=== PATIENT | female | born 1990 | race Caucasian/White ===

== ENCOUNTER 2017-11-14 00:21 | Outpatient (CLI) | payer MEDICAID ==
[2017-11-14 01:35] LABS: ADD MAN DIFF? NO
[2017-11-14 01:39] LABS: WHITE BLOOD COUNT 12.7 10^3/ul (4.8-10.8)
[2017-11-14 01:39] LABS: ABNORMAL IP MESSAGE 1; BASOPHILS % 0.2 % (0.0-2.0); EOSINOPHILS # 0.1 10^3/ul (0.0-0.5); EOSINOPHILS % 0.9 % (0.0-7.0); HEMATOCRIT 31.1 % (37.0-47.0); HEMOGLOBIN 10.4 g/dl (12.0-16.0); LYMPHOCYTES # 2.4 10^3/ul (0.8-2.9); LYMPHOCYTES % 18.9 % (15.0-51.0); MEAN CORPUSCULAR HEMOGLOBIN 26.9 pg (29.0-33.0); MEAN CORPUSCULAR HGB CONC 33.4 g/dl (32.0-37.0); MEAN CORPUSCULAR VOLUME 80.4 fl (82.0-101.0); MEAN PLATELET VOLUME 11.1 fl (7.4-10.4); MONOCYTES % 8.1 % (0.0-11.0); NEUTROPHIL # 9.1 10^3/ul (1.6-7.5); NEUTROPHILS % 71.4 % (39.0-77.0); PLATELET COUNT 86 10^3/UL (140-415); RED BLOOD COUNT 3.87 10^6/ul (4.20-5.40); RED CELL DISTRIBUTION WIDTH 13.9 % (11.5-14.5)
[2017-11-14 01:42] LABS: POSITIVE DIFF @See below
[2017-11-14 02:25] LABS: ADD UMIC YES; UR ASCORBIC ACID NEGATIVE (NEGATIVE); UR BACTERIA MODERATE /HPF (NONE SEEN); UR BILIRUBIN (Dip) NEGATIVE (NEGATIVE); UR BLOOD (Dip) 1+ mg/dL (NEGATIVE); UR CLARITY SLIGHTLY CLOUDY (CLEAR); UR COLOR YELLOW (YELLOW); UR GLUCOSE (Dip) NEGATIVE (NEGATIVE); UR KETONES (Dip) NEGATIVE (NEGATIVE); UR LEUKOCYTE ESTERASE (Dip) 3+ Leu/ul (NEGATIVE); UR NITRITE (Dip) POSITIVE (NEGATIVE); UR RBC 5 /HPF (0-5); UR SPECIFIC GRAVITY (Dip) 1.006 (1.003-1.030); UR TOTAL PROTEIN (Dip) 1+ mg/dl (NEGATIVE); UR UROBILINOGEN (Dip) NEGATIVE (NEGATIVE); UR WBC 76 /HPF (0-5)
[2017-11-14] MEDS: CEFTRIAXONE 1 GM INJ IM (04:35)
[2017-11-14] MEDS ORDERED: MAGNESIUM SULFATE 4 GM/100 ML 100 ML (05:31)
== END 2017-11-14 04:30 | disposition home or self-care (01) ==
LOC: OBT 00:21 → L-D 00:23 → OBT 04:55
DX: O99.113 Other diseases of the blood and blood-forming organs and certain disorders involving the immune mechanism complicating pregnancy, third trimester (principal); O23.43 Unspecified infection of urinary tract in pregnancy, third trimester; D69.6 Thrombocytopenia, unspecified; Z3A.31 31 weeks gestation of pregnancy
CPT/HCPCS: 76817; 81001; 82731; 85025; 87086; 96372

== ENCOUNTER 2017-11-30 10:58 | Outpatient (CLI) | payer MEDICAID ==
[2017-11-30 13:19] LABS: ADD UMIC YES; UR ASCORBIC ACID NEGATIVE (NEGATIVE); UR BACTERIA FEW /HPF (NONE SEEN); UR BILIRUBIN (Dip) NEGATIVE (NEGATIVE); UR BLOOD (Dip) 3+ mg/dL (NEGATIVE); UR CLARITY CLOUDY (CLEAR); UR COLOR YELLOW (YELLOW); UR GLUCOSE (Dip) NEGATIVE (NEGATIVE); UR KETONES (Dip) TRACE mg/dL (NEGATIVE); UR LEUKOCYTE ESTERASE (Dip) 2+ Leu/ul (NEGATIVE); UR MUCUS FEW /HPF (NONE SEEN); UR NITRITE (Dip) POSITIVE (NEGATIVE); UR RBC > 182 /HPF (0-5); UR SPECIFIC GRAVITY (Dip) 1.009 (1.003-1.030); UR TOTAL PROTEIN (Dip) 2+ mg/dl (NEGATIVE); UR UROBILINOGEN (Dip) NEGATIVE (NEGATIVE); UR WBC 154 /HPF (0-5)
== END 2017-11-30 14:13 | disposition home or self-care (01) ==
LOC: OBT 10:58 → L-D 10:58 → OBT 14:13
DX: O23.43 Unspecified infection of urinary tract in pregnancy, third trimester (principal); O26.893 Other specified pregnancy related conditions, third trimester; M25.559 Pain in unspecified hip; M54.5 Low back pain; Z3A.34 34 weeks gestation of pregnancy
CPT/HCPCS: 76817; 81001

== ENCOUNTER 2017-12-28 11:55 | Outpatient (CLI) | payer OTHER, MEDICAID | END 2017-12-28 14:35 | disposition home or self-care (01) | LOC: OBT 11:55 → L-D 11:55 → OBT 14:35 | DX: O26.843 Uterine size-date discrepancy, third trimester (principal); Z3A.38 38 weeks gestation of pregnancy | CPT/HCPCS: 76815; 76818 ==

== ENCOUNTER 2018-01-11 12:34 | Inpatient (IN) | payer OTHER ==
[~2018-01-11 12:34] MED LIST: CARBOPROST 250 MCG INJ
[2018-01-11] MEDS ORDERED: LACTATED RINGER'S 1,000 ML IV (13:48)
[2018-01-11] MEDS: LACTATED RINGER'S 1,000 ML IV ×2 (13:50→14:45)
[2018-01-11] MEDS ORDERED: LIDOCAINE 1% (MPF) 30 ML INJ INJ (14:00)
[2018-01-11] MEDS ORDERED: IBUPROFEN 600 MG TAB PO (14:00)
[2018-01-11] MEDS ORDERED: OXYTOCIN 30 UNITS/LR 500 ML IV ×2 (14:00)
[2018-01-11] MEDS ORDERED: BUTORPHANOL 2 MG INJ IV (14:00)
[2018-01-11 14:02] LABS: ADD MAN DIFF? NO
[2018-01-11 14:06] LABS: WHITE BLOOD COUNT 10.7 10^3/ul (4.8-10.8)
[2018-01-11 14:06] LABS: ABNORMAL IP MESSAGE 1; BASOPHILS % 0.3 % (0.0-2.0); EOSINOPHILS # 0.1 10^3/ul (0.0-0.5); EOSINOPHILS % 0.9 % (0.0-7.0); HEMATOCRIT 35.3 % (37.0-47.0); HEMOGLOBIN 12.2 g/dl (12.0-16.0); LYMPHOCYTES # 2.2 10^3/ul (0.8-2.9); LYMPHOCYTES % 20.8 % (15.0-51.0); MEAN CORPUSCULAR HEMOGLOBIN 27.3 pg (29.0-33.0); MEAN CORPUSCULAR HGB CONC 34.6 g/dl (32.0-37.0); MEAN PLATELET VOLUME 13.3 fl (7.4-10.4); MONOCYTE # 0.8 10^3/ul (0.3-0.9); MONOCYTES % 7.9 % (0.0-11.0); NEUTROPHIL # 7.4 10^3/ul (1.6-7.5); NEUTROPHILS % 69.4 % (39.0-77.0); PLATELET COUNT 76 10^3/UL (140-415); POSITIVE DIFF @See below; RED BLOOD COUNT 4.47 10^6/ul (4.20-5.40); RED CELL DISTRIBUTION WIDTH 13.2 % (11.5-14.5)
[2018-01-11 14:35] LABS: INR 0.82; PARTIAL THROMBOPLASTIN TIME 29.1 Sec (25.0-35.0); PROTIME 11.4 Sec (11.9-14.9); PT RATIO 0.9
[2018-01-11 14:54] LABS: HEPATITIS B SURFACE ANTIGEN NEGATIVE (NEGATIVE)
[2018-01-11 16:49] LABS: RAPID PLASMA REAGIN NONREACTIVE (NR)
[2018-01-11] MEDS ORDERED: CITRIC ACID/SODIUM CITRATE 15 ML CUP (18:07)
[2018-01-11] MEDS ORDERED: ONDANSETRON 4 MG INJ (18:07)
[2018-01-11 18:10] LABS: ADD MAN DIFF? NO
[2018-01-11 18:12] LABS: WHITE BLOOD COUNT 10.8 10^3/ul (4.8-10.8)
[2018-01-11 18:12] LABS: BASOPHILS % 0.2 % (0.0-2.0); EOSINOPHILS # 0.1 10^3/ul (0.0-0.5); EOSINOPHILS % 0.9 % (0.0-7.0); HEMATOCRIT 32.6 % (37.0-47.0); HEMOGLOBIN 11.4 g/dl (12.0-16.0); LYMPHOCYTES # 2.5 10^3/ul (0.8-2.9); LYMPHOCYTES % 22.9 % (15.0-51.0); MEAN CORPUSCULAR HEMOGLOBIN 27.8 pg (29.0-33.0); MEAN CORPUSCULAR VOLUME 79.5 fl (82.0-101.0); MEAN PLATELET VOLUME 12.6 fl (7.4-10.4); MONOCYTE # 0.7 10^3/ul (0.3-0.9); NEUTROPHIL # 7.5 10^3/ul (1.6-7.5); NEUTROPHILS % 69.6 % (39.0-77.0); RED CELL DISTRIBUTION WIDTH 13.1 % (11.5-14.5)
[2018-01-11] MEDS: ONDANSETRON 4 MG INJ IV (18:12)
[2018-01-11] MEDS: CITRIC ACID/SODIUM CITRATE 15 ML CUP PO (18:12)
[2018-01-11 18:23] LABS: PLATELET COUNT 67 10^3/UL (140-415)
[2018-01-11 18:32] LABS: ALANINE AMINOTRANSFERASE 26 IU/L (13-69); ALBUMIN 3.1 g/dl (3.3-4.9); ALBUMIN/GLOBULIN RATIO 0.96; ALKALINE PHOSPHATASE 143 IU/L (42-121); ANION GAP 15 (8-16); ASPARTATE AMINO TRANSFERASE 22 IU/L (15-46); BILIRUBIN,INDIRECT 0.2 mg/dl (0-1.1); BILIRUBIN,TOTAL 0.2 mg/dl (0.2-1.3); BLOOD UREA NITROGEN 14 mg/dl (7-20); CALCIUM 8.9 mg/dl (8.4-10.2); CARBON DIOXIDE 20 mmol/L (21-31); CHLORIDE 107 mmol/L (97-110); CREATININE 0.72 mg/dl (0.44-1.00); POTASSIUM 3.9 mmol/L (3.5-5.1); SODIUM 138 mmol/L (135-144); TOTAL PROTEIN 6.3 g/dl (6.1-8.1)
[2018-01-11 18:34] LABS: ADD UMIC YES; GLUCOSE 73 mg/dl (70-220); UR ASCORBIC ACID NEGATIVE (NEGATIVE); UR BACTERIA FEW /HPF (NONE SEEN); UR BILIRUBIN (Dip) NEGATIVE (NEGATIVE); UR BLOOD (Dip) 2+ mg/dL (NEGATIVE); UR CLARITY CLOUDY (CLEAR); UR COLOR YELLOW (YELLOW); UR GLUCOSE (Dip) NEGATIVE (NEGATIVE); UR KETONES (Dip) NEGATIVE (NEGATIVE); UR LEUKOCYTE ESTERASE (Dip) 3+ Leu/ul (NEGATIVE); UR NITRITE (Dip) POSITIVE (NEGATIVE); UR RBC 12 /HPF (0-5); UR SPECIFIC GRAVITY (Dip) 1.009 (1.003-1.030); UR SQUAMOUS EPITHELIAL CELL FEW /HPF (FEW); UR TOTAL PROTEIN (Dip) 1+ mg/dl (NEGATIVE); UR UROBILINOGEN (Dip) NEGATIVE (NEGATIVE); UR WBC 132 /HPF (0-5)
[2018-01-11] MEDS ORDERED: METOCLOPRAMIDE 10 MG INJ (18:56)
[2018-01-11] MEDS ORDERED: OXYTOCIN 10 UNIT INJ ×3 (18:56→19:42)
[2018-01-11] MEDS ORDERED: FENTAnyl 50 MCG/ML VIAL (18:56)
[2018-01-11] MEDS ORDERED: morphine SULFATE/PF (10 MG/10 ML) INJ (18:56)
[2018-01-11] MEDS ORDERED: PHENYLephrine (100 MCG/ML) 5ML SYG (18:56)
[2018-01-11] MEDS ORDERED: BUPIVACAINE 0.75%/DEXT (SPINAL) 2 ML INJ (18:57)
[2018-01-11] MEDS: CEFAZOLIN 2 GM/50 ML (PMX) 50 ML IVPB (19:20)
[2018-01-11] MEDS: MISOPROSTOL 200 MCG TAB PR (20:05)
[2018-01-11] MEDS: OXYTOCIN 30 UNITS/LR 500 ML IV (20:53)
[2018-01-11] MEDS ORDERED: ALBUTEROL 0.083% (NEB) 2.5 MG/3 ML AMP HHN (22:00)
[2018-01-11] MEDS ORDERED: NALOXONE (0.4 MG/ML) INJ IV (22:00)
[2018-01-11] MEDS ORDERED: HYDROmorphONE (0.2 MG/ML) 10ML SYG IV ×3 (22:00)
[2018-01-11] MEDS ORDERED: hydrALAzine 20 MG INJ IV (22:00)
[2018-01-11] MEDS ORDERED: LABETALOL HCL 20MG INJ IV (22:00)
[2018-01-11] MEDS ORDERED: NALBUPHINE HCL (10 MG/1 ML) INJ IV (22:00)
[2018-01-11] MEDS ORDERED: FENTAnyl 50 MCG/ML VIAL IV ×3 (22:00)
[2018-01-11] MEDS ORDERED: IPRATROPIUM (NEB) 0.5 MG/2.5 ML AMP HHN (22:00)
[2018-01-11] MEDS ORDERED: OXYCODONE/ACETAMINOPHEN (5/325) TAB PO ×2 (22:00)
[2018-01-11] MEDS ORDERED: EPHEDrine SULFATE 50 MG/5 ML SYG IV (22:00)
[2018-01-11] MEDS ORDERED: DIPHENHYDRAMINE 50 MG INJ IV ×2 (22:00)
[2018-01-11] MEDS ORDERED: TRIMETHOBENZAMIDE 100 MG/ML VIAL IM ×2 (22:00)
[2018-01-11] MEDS ORDERED: MEPERIDINE 25 MG INJ IV (22:00)
[2018-01-11] MEDS ORDERED: ONDANSETRON 4 MG INJ IV ×2 (22:00)
[2018-01-11] MEDS ORDERED: morphine 2 MG INJ IV ×2 (22:00)
[2018-01-11] MEDS: ACETAMINOPHEN 325 MG TAB PO (23:28)
[2018-01-11] MEDS: DIPHENOXYLATE/ATROPINE TAB PO (23:28)
[2018-01-11] MEDS: METHYLERGONOVINE 0.2 MG INJ IM (23:48)
[2018-01-11] MEDS: CARBOPROST 250 MCG INJ IM ×3 (23:49→23:50)
[2018-01-12] MEDS: OXYTOCIN 30 UNITS/LR 500 ML IV ×2 (01:03→05:02)
[2018-01-12] MEDS ORDERED: CARBOPROST 250 MCG INJ IM (01:30)
[2018-01-12] MEDS ORDERED: MISOPROSTOL 200 MCG TAB PR (01:30)
[2018-01-12] MEDS ORDERED: LANOLIN 7 GM TUBE TOP (01:30)
[2018-01-12] MEDS ORDERED: OXYCODONE/ACETAMINOPHEN (5/325) TAB PO ×3 (01:30→18:45)
[2018-01-12] MEDS ORDERED: OXYTOCIN 30 UNITS/LR 500 ML IV (01:30)
[2018-01-12] MEDS ORDERED: METHYLERGONOVINE 0.2 MG INJ IM (01:30)
[2018-01-12] MEDS: LACTATED RINGER'S 1,000 ML IV ×2 (05:04→17:57)
[2018-01-12] MEDS: ACETAMINOPHEN 325 MG TAB PO ×4 (05:05→23:00)
[2018-01-12] MEDS: DIPHENOXYLATE/ATROPINE TAB PO ×4 (05:05→23:00)
[2018-01-12 06:33] LABS: ADD MAN DIFF? NO
[2018-01-12 06:45] LABS: ABNORMAL IP MESSAGE 1; BASOPHILS % 0.2 % (0.0-2.0); EOSINOPHILS % 0.2 % (0.0-7.0); HEMATOCRIT 28.6 % (37.0-47.0); LYMPHOCYTES # 2.4 10^3/ul (0.8-2.9); LYMPHOCYTES % 12.6 % (15.0-51.0); MEAN CORPUSCULAR HEMOGLOBIN 27.9 pg (29.0-33.0); MEAN CORPUSCULAR VOLUME 79.7 fl (82.0-101.0); MONOCYTE # 1.2 10^3/ul (0.3-0.9); MONOCYTES % 6.2 % (0.0-11.0); NEUTROPHIL # 15.3 10^3/ul (1.6-7.5); NEUTROPHILS % 80.3 % (39.0-77.0); RED BLOOD COUNT 3.59 10^6/ul (4.20-5.40); RED CELL DISTRIBUTION WIDTH 13.1 % (11.5-14.5)
[2018-01-12 06:45] LABS: WHITE BLOOD COUNT 19.1 10^3/ul (4.8-10.8)
[2018-01-12 06:56] LABS: PLATELET COUNT 60 10^3/UL (140-415); POSITIVE DIFF @See below
[2018-01-12] MEDS: SENNA/DOCUSATE NA (8.6MG/50MG) TAB PO ×2 (09:00→21:00)
[2018-01-12] MEDS: KETOROLAC 30 MG INJ IV (15:25)
[2018-01-12] MEDS: IBUPROFEN 800 MG TAB PO (21:36)
[2018-01-13] MEDS: ACETAMINOPHEN 325 MG TAB PO ×4 (04:50→22:54)
[2018-01-13] MEDS: DIPHENOXYLATE/ATROPINE TAB PO ×4 (05:00→23:00)
[2018-01-13] MEDS: IBUPROFEN 800 MG TAB PO ×3 (05:39→21:32)
[2018-01-13] MEDS: SENNA/DOCUSATE NA (8.6MG/50MG) TAB PO ×2 (09:00→21:32)
[2018-01-13 10:46] LABS: ADD MAN DIFF? NO
[2018-01-13 10:50] LABS: ABNORMAL IP MESSAGE 1; BASOPHIL # 0.1 10^3/ul (0.0-0.1); BASOPHILS % 0.3 % (0.0-2.0); EOSINOPHILS # 0.1 10^3/ul (0.0-0.5); EOSINOPHILS % 0.4 % (0.0-7.0); HEMATOCRIT 27.1 % (37.0-47.0); HEMOGLOBIN 9.4 g/dl (12.0-16.0); LYMPHOCYTES # 2.2 10^3/ul (0.8-2.9); LYMPHOCYTES % 13.7 % (15.0-51.0); MEAN CORPUSCULAR HEMOGLOBIN 28.2 pg (29.0-33.0); MEAN CORPUSCULAR HGB CONC 34.7 g/dl (32.0-37.0); MEAN CORPUSCULAR VOLUME 81.4 fl (82.0-101.0); MEAN PLATELET VOLUME 12.3 fl (7.4-10.4); MONOCYTE # 0.8 10^3/ul (0.3-0.9); NEUTROPHIL # 12.8 10^3/ul (1.6-7.5); PLATELET COUNT 64 10^3/UL (140-415); RED BLOOD COUNT 3.33 10^6/ul (4.20-5.40); RED CELL DISTRIBUTION WIDTH 13.4 % (11.5-14.5)
[2018-01-13 10:52] LABS: POSITIVE DIFF @See below
[2018-01-13] MEDS: INFLUENZA VIRUS VACCINE 0.5 ML (DISPENSING) IM* (16:01)
[2018-01-14] MEDS: ACETAMINOPHEN 325 MG TAB PO ×4 (04:46→23:00)
[2018-01-14] MEDS: DIPHENOXYLATE/ATROPINE TAB PO (05:00)
[2018-01-14] MEDS: IBUPROFEN 800 MG TAB PO ×3 (05:48→21:51)
[2018-01-14] MEDS: SENNA/DOCUSATE NA (8.6MG/50MG) TAB PO ×2 (09:21→21:12)
[2018-01-14] MEDS: DIPHTH/TET/ACEL PERTUSS (ADULT) 0.5 ML VIAL IM* (12:18)
[2018-01-15] MEDS: ACETAMINOPHEN 325 MG TAB PO ×2 (05:00→10:58)
[2018-01-15] MEDS: IBUPROFEN 800 MG TAB PO (05:40)
[2018-01-15] MEDS: SENNA/DOCUSATE NA (8.6MG/50MG) TAB PO (09:18)
[2018-01-15 10:09] LABS: ADD MAN DIFF? NO
[2018-01-15 10:15] LABS: WHITE BLOOD COUNT 10.2 10^3/ul (4.8-10.8)
[2018-01-15 10:15] LABS: ABNORMAL IP MESSAGE 1; BASOPHILS % 0.3 % (0.0-2.0); EOSINOPHILS # 0.2 10^3/ul (0.0-0.5); EOSINOPHILS % 1.8 % (0.0-7.0); HEMATOCRIT 29.6 % (37.0-47.0); HEMOGLOBIN 9.9 g/dl (12.0-16.0); LYMPHOCYTES # 2.2 10^3/ul (0.8-2.9); MEAN CORPUSCULAR HGB CONC 33.4 g/dl (32.0-37.0); MEAN CORPUSCULAR VOLUME 80.7 fl (82.0-101.0); MEAN PLATELET VOLUME 12.6 fl (7.4-10.4); MONOCYTE # 0.7 10^3/ul (0.3-0.9); MONOCYTES % 6.5 % (0.0-11.0); NEUTROPHIL # 7.2 10^3/ul (1.6-7.5); NEUTROPHILS % 69.9 % (39.0-77.0); PLATELET COUNT 90 10^3/UL (140-415); RED BLOOD COUNT 3.67 10^6/ul (4.20-5.40); RED CELL DISTRIBUTION WIDTH 13.4 % (11.5-14.5)
[2018-01-15 10:38] LABS: POSITIVE DIFF @See below
== END 2018-01-15 16:18 | disposition home or self-care (01) | DRG 765 ==
LOC: L-D 01-12 02:14 → PP1 01-12 14:07 → L-D 18:39
PROVIDERS: Obstetrics & Gynecology
PROC: 10D00Z1 Extraction of Products of Conception, Low, Open Approach (ICD-10-PCS; principal; 2018-01-12)
PROC: 3E033VJ Introduction of Other Hormone into Peripheral Vein, Percutaneous Approach (ICD-10-PCS; 2018-01-12)
DX: O48.0 Post-term pregnancy (principal); O41.03X0 Oligohydramnios, third trimester, not applicable or unspecified; Z3A.40 40 weeks gestation of pregnancy; O76 Abnormality in fetal heart rate and rhythm complicating labor and delivery; Z37.0 Single live birth
CPT/HCPCS: 76818; 80053; 81001; 85025; 85610; 85730; 86592; 86850; 86900; 86901; 86920; 87340; 88307; 90686; 90715; 99464